=== PATIENT | male | born 1990 | race Caucasian/White ===

== ENCOUNTER 2017-03-26 23:36 | Emergency (ER) | payer MEDICAID ==
[~2017-03-26] VITALS: Ht 180.3 cm; Wt 94.8 kg
[~2017-03-26 23:36] MED LIST: IBUP-974 PO
[2017-03-27 00:10] VITALS: BP 132/70
--- NOTE | 2017-03-27 02:29 | NUR ---
PT SENT TO XRAY THEN WILL GO TO ER BED 11
--- NOTE | 2017-03-27 02:48 | NUR ---
PT BACK FROM X-RAY.
--- NOTE | 2017-03-27 02:48 | NUR ---
27 Y/O M W/C/O R FOOT PAIN X 6 DAYS/ FEVER AND ABCESS TO R FOOT X TODAY. NO MED HX. NO S/S OF DISTRESS NOTED AT THE MOMENT. ER MADE AWARE.
[2017-03-27 03:57] VITALS: BP 127/70
--- NOTE | 2017-03-27 03:57 | NUR ---
Patient discharged with v/s stable. Written and verbal after care instructions given and explained. Patient alert, oriented and verbalized understanding of instructions. Ambulatory with steady gait. All questions addressed prior to discharge. ID band removed. Patient advised to follow up with PMD in 2-3 days. Rx of norco given. Patient educated on indication of medication including possible reaction and side effects. Opportunity to ask questions provided and answered.
== END 2017-03-27 03:57 | disposition home or self-care (01) ==
LOC: MED 23:36
DX: L02.611 Cutaneous abscess of right foot (principal)
CPT/HCPCS: 73630; 99284

== ENCOUNTER 2017-03-29 15:33 | Emergency (ER) | payer MEDICAID ==
[~2017-03-29] VITALS: Ht 180.3 cm; Wt 92.7 kg
[2017-03-29 16:49] VITALS: BP 139/75
--- NOTE | 2017-03-29 16:53 | NUR ---
PT AA&OX4, RR EVEN/UNLABORED AT THIS TIME; PT TO LOBBY AWAITING OPEN BED.
--- NOTE | 2017-03-29 19:40 | NUR ---
LEAVE, TO SEE PMD IN AM, PATIENT LEFT WITHOUT BEING SEEN BY DR. MERRILL. NO FURTHER CARE PROVIDED FOR PATIENT.
== END 2017-03-29 19:40 | disposition left against medical advice (07) ==
LOC: MED 15:33
DX: M79.671 Pain in right foot (principal); Z53.21 Procedure and treatment not carried out due to patient leaving prior to being seen by health care provider

== ENCOUNTER 2017-03-30 02:45 | Inpatient (IN) | payer MEDICAID ==
[~2017-03-30] VITALS: Ht 180.3 cm; Wt 95.3 kg
[2017-03-30 02:52] VITALS: BP 110/67
--- NOTE | 2017-03-30 02:55 | NUR ---
TO LOBBY , V/S STABLE A/W FOR BED, COLTEN NOTED
--- NOTE | 2017-03-30 02:55 | NUR ---
Note daniaone in EDM - 03/30/17 at 0737 by BENITO 27/M W C/O RT FOOT PAIN. RT FOOT NOTED WITH BLOOD BLISTER BY 5TH METATARSAL, EDEMA AND ERYTHEMA. PT REPORTS INJURY FROM FOOTBALL X 1 WEEK AGO, SEEN IN ER, REPORTS NO FRACTURE, PT WAS GIVEN NORCO AND KEFLEX, REPORTS PT HE HAS 6 DAYS LEFT OF ANTIBIOTIC. PT ARRIVED IN CRUTCHES, +PSC. DENIES OTHER PMH/RX/OTC
[2017-03-30] MEDS ORDERED: NACL 0.9% 1,000 ML IV SCH (06:28)
[2017-03-30] MEDS ORDERED: CLINDAMYCIN 300 MG in DEXTROSE 5% 50 ML IV ONE (06:30)
[2017-03-30] MEDS ORDERED: PIPERACILLIN/TAZOBACTAM 3.375 GM in DEXT 5% MINI-BAG PLUS 50 ML IV ONE (06:30)
[2017-03-30] MEDS ORDERED: VANCOMYCIN 1,000 MG in DEXTROSE 5% 250 ML IV ONE (06:30)
--- NOTE | 2017-03-30 06:35 | NUR ---
27/M W C/O RT FOOT PAIN. RT FOOT NOTED WITH BLOOD BLISTER BY 5TH METATARSAL, EDEMA AND ERYTHEMA. PT REPORTS INJURY FROM FOOTBALL X 1 WEEK AGO, SEEN IN ER, REPORTS NO FRACTURE, PT WAS GIVEN NORCO AND KEFLEX, REPORTS PT HE HAS 6 DAYS LEFT OF ANTIBIOTIC. PT ARRIVED IN CRUTCHES, +PSC. DENIES OTHER PMH/RX/OTC
[2017-03-30] MEDS ORDERED: VANCOMYCIN 1,000 MG VIAL ONE (06:44)
[2017-03-30] MEDS ORDERED: CLINDAMYCIN 600 MG/4 ML VIAL ONE (06:44)
[2017-03-30] MEDS ORDERED: PIPERACILLIN/TAZOBACTAM 3.375 GM VIAL IV ONE (06:44)
--- NOTE | 2017-03-30 07:15 | NUR ---
Received report from Laura GUADALUPE. Patient resting with eyes closed laying supine in [facility]. RR are even and unlabored. VSS. NAD. Will continue to monitor.
[2017-03-30 07:32] LABS: CARBON DIOXIDE 30.9 mmol/L (21-32); CREATININE 0.9 mg/dL (0.7-1.3); POTASSIUM 3.9 mmol/L (3.5-5.1)
[2017-03-30 07:39] LABS: ALBUMIN 3.7 g/dL (3.4-5.0); BASOPHILS # (AUTO) 0.2 K/uL (0.00-0.22); EOSINOPHILS # (AUTO) 0.3 K/uL (0-0.4); EOSINOPHILS % (AUTO) 2.4 % (0.0-4.0); HEMATOCRIT 47.8 % (36-52); HEMOGLOBIN 16.3 g/dL (12.0-18.0); LYMPHOCYTES # (AUTO) 2.4 K/uL (2.0-11.5); LYMPHOCYTES % (AUTO) 22.2 % (20.5-51.1); MEAN CORPUSCULAR HEMOGLOBIN 31 pg (27-31); MEAN CORPUSCULAR HGB CONC 34 g/dL (33-37); MEAN CORPUSCULAR VOLUME 92 fL (80-94); MONOCYTES # (AUTO) 1.2 K/uL (0.8-1.0); MONOCYTES % (AUTO) 10.7 % (1.7-9.3); NEUTROPHILS # (AUTO) 6.9 K/uL (1.8-7.7); NEUTROPHILS % (AUTO) 62.7 % (42.2-75.2); PLATELET COUNT (AUTO) 325 K/uL (140-450); RED BLOOD CELL COUNT(AUTO) 5.21 MIL/uL (4.20-6.10); RED CELL DISTRIBUTION WIDTH 12.4 % (11.6-13.7); TOTAL BILIRUBIN 0.5 mg/dL (0.0-1.0)
[2017-03-30 08:00] LABS: PROTHROMBIN TIME 10.8 secs (10.8-13.4)
--- NOTE | 2017-03-30 09:15 | NUR ---
Pt resting in gurney with eyes closed. Pt with no complaints. VSS. NAD. Will continue to monitor.
--- NOTE | 2017-03-30 10:00 | NUR ---
call ct for results of ct; transporter radiology will follow up; awaiting results of ct; er md Carranza aware
--- NOTE | 2017-03-30 10:47 | NUR ---
called radiology for results for ct; [facility] dental lab technician sts "we are working on it"; er md silva aware; will follow up
[2017-03-30] MEDS ORDERED: ACETAMINOPHEN 325 MG TAB PO PRN (11:15)
[2017-03-30] MEDS ORDERED: ONDANSETRON 4 MG/2 ML VIAL IVP PRN (11:15)
[2017-03-30] MEDS: NACL 0.9% 1,000 ML IV SCH ×2 (11:33→20:13)
[2017-03-30 13:41] LABS: CHOL/HDL RATIO 2.8 (1-4.5); FREE T4 (FREE THYROXINE) 1.26 ng/dL (0.76-1.46); MAGNESIUM 2.1 mg/dL (1.8-2.4); PHOSPHORUS 4.1 mg/dL (2.5-4.9); THYROID STIMULATING HORMONE 4.49 uIU/mL (0.34-3.74)
--- NOTE | 2017-03-30 14:40 | NUR ---
RECEIVED PT FROM ER. REPORT GIVEN BY ER NURSE FRANTZ AT BEDSIDE. PT 27 MALE. PT IS ALERT, AWAKE AND ORIENTED X4 ON ROOM AIR. IV NOTED TO THE LEFT AC 18 G. INFUSING WELL. NO S/S OF DISTRESS. RIGHT FOOT IS SWELLING AND PURPLE. SKIN INTACT. CARE PLAN DISCUSSED WITH PT. PT VERBALIZED UNDERSTANDING. ORIENTED PT TO ROOM NO C/O OF PAIN AT THIS TIME. SAFETY PRECAUTIONS IN PLACE. UPDATED BOARD. VITAL SIGNS WITHIN NORMAL LIMITS. PT IN STABLE CONDITION, NO SIGNS OF DISTRESS NOTED. BED IN LOW POSITION, CALL LIGHT WITHIN REACH. WILL CONTINUE TO MONITOR.
[2017-03-30 14:48] VITALS: BP 119/60
[2017-03-30] MEDS: HYDROcodone/APAP 7.5/325 MG 1 TAB PO PRN (15:02)
--- NOTE | 2017-03-30 16:00 | NUR ---
CONSENT OBTAINED FOR I&D FOR TOMORROW.
[2017-03-30 16:10] VITALS: BP 100/56
--- NOTE | 2017-03-30 16:10 | NUR ---
MADE PT AWARE PT WILL BE NPO AFTER MIDNIGHT FOR I&D.
[2017-03-30] MEDS: LEVOFLOXACIN 750 MG/D5W PREMIX 150 ML IV SCH (16:52)
[2017-03-30] MEDS: CLINDAMYCIN 600 MG in DEXTROSE 5% 50 ML IV SCH (18:30)
[2017-03-30] MEDS: MORPHINE SULFATE 2 MG/ML SYR IVP PRN (18:34)
--- NOTE | 2017-03-30 19:25 | NUR ---
RECEIVED REPORT AT BEDSIDE FROM DAY SHIFT RN. PT A/OX4 ON ROOM AIR. PT HAS A 18G IV TO LEFT AC, INFUSING NS@125ML/HR. CELLULITIS TO RIGHT FOOT, OTHERWISE SKIN INTACT. SAFETY PRECAUTIONS IN PLACE. UPDATED BOARD. VITAL SIGNS WITHIN NORMAL LIMITS. PT IN STABLE CONDITION, NO SIGNS OF DISTRESS NOTED. BED IN LOW POSITION, CALL LIGHT WITHIN REACH. WILL CONTINUE TO MONITOR.
--- NOTE | 2017-03-30 20:02 | NUR ---
ENDORSED PT TO WASTE MACHINE OPERATOR. PT IN STABLE CONDITION.
[2017-03-30] MEDS: DOCUSATE SODIUM 100 MG GELCAP PO SCH (21:00)
[2017-03-31] VITALS: BP 100/47
--- NOTE | 2017-03-31 00:10 | NUR ---
VITAL SIGNS WITHIN NORMAL LIMITS. PT IN STABLE CONDITION, NO SIGNS OF DISTRESS NOTED. BED IN LOW POSITION, CALL LIGHT WITHIN REACH. WILL CONTINUE TO MONITOR.
[2017-03-31] MEDS: CLINDAMYCIN 600 MG in DEXTROSE 5% 50 ML IV SCH ×4 (00:42→18:12)
[2017-03-31] MEDS: NACL 0.9% 1,000 ML IV SCH ×3 (03:20→19:13)
--- NOTE | 2017-03-31 07:15 | NUR ---
ENDORSED PT TO DAY SHIFT RN FOR CONTINUITY OF CARE. PT IN STABLE CONDITION.
--- NOTE | 2017-03-31 07:17 | NUR ---
RECEIVED PATIENT REPORT AT BEDSIDE FROM NIGHT NURSE. PATIENT IS AAOX4 AND SHOWS NO S/S OF ACUTE DISTRESS ON ROOM AIR. IV NOTED ON THE LFT AC WITH IVF'S INFUSING WELL. RIGHT FOOT REDNESS, SWELLING AND PURPLE DISCOLORATION. PATIENT DENIES PAIN AT THIS TIME. POC WAS DISCUSSED WITH PATIENT AND HE VERBALIZED UNDERSTANDING. THE BED IS IN LOW POSITION WITH CALL LIGHT WITHIN REACH.
[2017-03-31 08:00] VITALS: BP 111/58
[2017-03-31 08:17] LABS: BASOPHILS # (AUTO) 0.2 K/uL (0.00-0.22); BASOPHILS % (AUTO) 3.3 % (0.0-2.0); EOSINOPHILS # (AUTO) 0.2 K/uL (0-0.4); EOSINOPHILS % (AUTO) 3.5 % (0.0-4.0); HEMATOCRIT 42.3 % (36-52); HEMOGLOBIN 14.2 g/dL (12.0-18.0); LYMPHOCYTES # (AUTO) 1.5 K/uL (2.0-11.5); LYMPHOCYTES % (AUTO) 27.6 % (20.5-51.1); MEAN CORPUSCULAR HEMOGLOBIN 31 pg (27-31); MEAN CORPUSCULAR HGB CONC 34 g/dL (33-37); MEAN CORPUSCULAR VOLUME 92 fL (80-94); MONOCYTES # (AUTO) 0.7 K/uL (0.8-1.0); MONOCYTES % (AUTO) 13.4 % (1.7-9.3); NEUTROPHILS # (AUTO) 2.9 K/uL (1.8-7.7); NEUTROPHILS % (AUTO) 52.2 % (42.2-75.2); PLATELET COUNT (AUTO) 293 K/uL (140-450); RED CELL DISTRIBUTION WIDTH 11.9 % (11.6-13.7); WHITE BLOOD COUNT (AUTO) 5.5 K/uL (4.8-10.8)
[2017-03-31 08:27] LABS: ANION GAP 9.3 (8-16); CARBON DIOXIDE 28.9 mmol/L (21-32); CREATININE 0.9 mg/dL (0.7-1.3); POTASSIUM 4.2 mmol/L (3.5-5.1)
[2017-03-31 08:34] LABS: MAGNESIUM 1.9 mg/dL (1.8-2.4); PHOSPHORUS 3.8 mg/dL (2.5-4.9)
[2017-03-31] MEDS: DOCUSATE SODIUM 100 MG GELCAP PO SCH ×2 (09:00→21:00)
--- NOTE | 2017-03-31 09:00 | NUR ---
PATIENT IS NPO FOR PROCEDURE, NO MEDICATION ADMINISTRATION AT THIS TIME.
--- NOTE | 2017-03-31 10:21 | NUR ---
PATIENT HAS BEEN SCREENED AND CATEGORIZED LOW NUTRITION RISK. PATIENT WILL BE SEEN WITHIN 7 DAYS OF ADMISSION. 04/05/[address]
--- NOTE | 2017-03-31 10:25 | NUR ---
PATIENT LEFT UNIT TO PROCEDURE IN STABLE CONDITION.
[2017-03-31] MEDS ORDERED: KETOROLAC 30 MG/ML VIAL IVP ONE (11:13)
[2017-03-31] MEDS ORDERED: ONDANSETRON 4 MG/2 ML VIAL IVP ONE (11:13)
[2017-03-31] MEDS ORDERED: SEVOFLURANE 250 ML BTL INH ONE (11:13)
[2017-03-31] MEDS ORDERED: DEXAMETHASONE 4 MG/ML VIAL IVP ONE (11:13)
[2017-03-31] MEDS ORDERED: BUPIVACAINE-MPF 0.25% 30 ML VIAL INJ ONE (11:16)
[2017-03-31] MEDS ORDERED: fentaNYL 0.05 MG/ML VIAL ONE (11:20)
[2017-03-31] MEDS ORDERED: HYDROmorphone PFS 2 MG/ML SYR IVP PRN (11:40)
[2017-03-31] MEDS ORDERED: ONDANSETRON 4 MG/2 ML VIAL IVP PRN (11:40)
[2017-03-31] MEDS ORDERED: HYDROmorphone PFS 2 MG/ML SYR ONE (12:00)
--- NOTE | 2017-03-31 12:35 | NUR ---
PATIENT ARRIVED BACK ON UNIT. PATIENT IN STABLE CONDITION V/S WNL AND CHARTED. PATIENT DENIES PAIN AT THIS TIME.
--- NOTE | 2017-03-31 13:00 | NUR ---
PATIENT STATED HE WOULD LIKE SOMETHING TO EAT, DR RICO NOTIFIED.
--- NOTE | 2017-03-31 13:40 | NUR ---
DR FAN NOTIFIED OF PATIENT STILL ON NPO IF OKAY TO ADVANCE DIET. TO PLACE IN ORDERS.
--- NOTE | 2017-03-31 15:00 | NUR ---
PATIENT IS TALKING ON THE PHONE AND SHOWS NO S/S OF ACUTE DISTRESS ON ROOM AIR.
[2017-03-31 16:00] VITALS: BP 109/52
[2017-03-31] MEDS: HYDROcodone/APAP 7.5/325 MG 1 TAB PO PRN (16:27)
[2017-03-31] MEDS: LEVOFLOXACIN 750 MG/D5W PREMIX 150 ML IV SCH (16:27)
--- NOTE | 2017-03-31 16:30 | NUR ---
ADMINISTERED SCHEDULED MEDICATIONS. IV ABX INFUSING WELL. PATIENT C/O 08/06 RT FOOT PAIN. ADMINISTERED NORCO PRN PAIN MED. WILL REASSESS IN ONE HR.
--- NOTE | 2017-03-31 18:15 | NUR ---
ADMINISTERED SCHEDULED MEDICATIONS. IV ABX INFUSING WELL. PT C/O 10/06 RT FOOT PAIN GAVE MORPHINE 1 MG IVP. WILL REASSESS IN 30 MIN.
[2017-03-31] MEDS: MORPHINE SULFATE 2 MG/ML SYR IVP PRN ×2 (18:16→23:31)
--- NOTE | 2017-03-31 19:20 | NUR ---
GAVE PATIENT REPORT AT BEDSIDE TO NIGHT NURSE. PATIENT ENDORSED IN STABLE CONDITION.
--- NOTE | 2017-03-31 19:21 | NUR ---
RECD. RESTING IN BED, AWAKE, A/OX4. RESPIRATION EVEN AND UNLABORED. IV OF NS AT 125 ML/HR INFUSING, RIGHT HAND G20, REQUESTED IV LINE AT LEFT AC G19 TO BE REMOVED, STATED IT HURTS. RIGHT FOOT COVERED WITH DRESSING WITH KERLIX DRY AND INTACT, TOES POSITIVE MOVEMENT AND SENSATION, CAPILLARY REFILL LESS 23 SECONDS. WHEN ASKED HOW MUCH PAIN IN THE SITE, STATED I'M OK, 04/08, WAS MEDICATED BY AM NURSE. PLAN OF CARE FOR THE NIGHT DISCUSSED. VERBALIZED UNDERSTANDING.
--- NOTE | 2017-03-31 20:00 | NUR ---
Patient's Plan of Care was discussed and reviewed with DIRECTOR OF REGIONAL SALES: LILLIE PITTS
[2017-04-01] VITALS: BP 111/50
--- NOTE | 2017-04-01 | NUR ---
SLEEPING COMFORTABLY IN BED, AFTER PAIN MEDICATION GIVEN BY RN.
[2017-04-01] MEDS: CLINDAMYCIN 600 MG in DEXTROSE 5% 50 ML IV SCH ×4 (00:12→18:00)
[2017-04-01] MEDS: NACL 0.9% 1,000 ML IV SCH ×3 (01:55→11:38)
--- NOTE | 2017-04-01 04:00 | NUR ---
NO COMPLAINT OF PAIN.
--- NOTE | 2017-04-01 06:30 | NUR ---
ALL ANTIBIOTICS DUE FOR THE SHIFT GIVEN BY RN, TOLERATED WELL.
--- NOTE | 2017-04-01 07:00 | NUR ---
CONDITION REMAIN STABLE. WILL ENDORSE AM NURSE FOR CONTINUITY OF CARE.
--- NOTE | 2017-04-01 07:10 | NUR ---
RECEIVED PATIENT REPORT AT BEDSIDE FROM NIGHT NURSE. PATIENT IS AAOX4 AND SHOWS NO S/S OF ACUTE DISTRESS ON ROOM AIR. DENIES PAIN AT THIS TIME. IV NOTED ON THE LFT HAND WITH IVF'S INFUSING WELL. RIGHT FOOT DRX CLEAN DRY AND INTACT. POC WAS DISCUSSED WITH PATIENT AND HE VERBALIZED UNDERSTANDING. SAFETY AND FALL RISK PRECAUTION ENFORCED. THE BED IS IN LOW POSITION WITH CALL LIGHT WITHIN REACH.
[2017-04-01 08:00] VITALS: BP 115/52
[2017-04-01 08:00] LABS: BASOPHILS # (AUTO) 0.2 K/uL (0.00-0.22); BASOPHILS % (AUTO) 2.2 % (0.0-2.0); EOSINOPHILS # (AUTO) 0.1 K/uL (0-0.4); EOSINOPHILS % (AUTO) 0.9 % (0.0-4.0); HEMATOCRIT 42.1 % (36-52); LYMPHOCYTES # (AUTO) 1.9 K/uL (2.0-11.5); LYMPHOCYTES % (AUTO) 17.7 % (20.5-51.1); MEAN CORPUSCULAR HEMOGLOBIN 31 pg (27-31); MEAN CORPUSCULAR HGB CONC 33 g/dL (33-37); MEAN CORPUSCULAR VOLUME 92 fL (80-94); MONOCYTES # (AUTO) 0.9 K/uL (0.8-1.0); MONOCYTES % (AUTO) 8.2 % (1.7-9.3); NEUTROPHILS # (AUTO) 7.8 K/uL (1.8-7.7); PLATELET COUNT (AUTO) 325 K/uL (140-450); RED BLOOD CELL COUNT(AUTO) 4.58 MIL/uL (4.20-6.10); RED CELL DISTRIBUTION WIDTH 11.8 % (11.6-13.7); WHITE BLOOD COUNT (AUTO) 10.9 K/uL (4.8-10.8)
[2017-04-01] MEDS: DOCUSATE SODIUM 100 MG GELCAP PO SCH (08:33)
[2017-04-01] MEDS: MORPHINE SULFATE 2 MG/ML SYR IVP PRN ×3 (08:34→15:59)
--- NOTE | 2017-04-01 08:38 | NUR ---
ADMINISTERED SCHEDULED MEDICATIONS. PATIENT SWALLOWED WITHOUT DIFFICULTY. PATIENT C/O 10/06 RT FOOT PAIN. ADMINISTERED MORPHINE 1 MG IVP. WILL REASSESS PAIN IN 30 MIN.
--- NOTE | 2017-04-01 09:30 | NUR ---
PATIENT IS SLEEPING AND SHOWS NO S/S OF ACUTE DISTRESS ON ROOM AIR. CRUTCHES AT BEDSIDE.
--- NOTE | 2017-04-01 10:15 | NUR ---
PATIENT BEING SEE BY PHYSICAL THERAPY.
--- NOTE | 2017-04-01 11:15 | NUR ---
PATIENT CHANGED ROOMS TO 118.
--- NOTE | 2017-04-01 11:55 | NUR ---
PATIENT C/O RT FOOT PAIN 10/06 AND WAS GIVEN MORPHINE 1 MG IVP. ALSO SCHEDULED MEDICATIONS WERE ADMINISTERED, IV ABX INFUSING WELL ON THE RT HAND. ALL NEEDS MET AT THIS TIME.
--- NOTE | 2017-04-01 13:15 | NUR ---
PATIENT BEING SEEN BY DR FAN REGARDING POSSIBLE DC. PATIENT SHOWS NO S/S OF ACUTE DISTRESS AT THIS TIME.
--- NOTE | 2017-04-01 15:37 | NUR ---
PATIENT IS RESTING AND EASILY AROUSABLE. PATIENT STATES PAIN ON THE RT FOOT /. WILL ADMINISTER PRN PAIN MEDICATION.
[2017-04-01 16:00] VITALS: BP 100/50
--- NOTE | 2017-04-01 16:00 | NUR ---
ADMINISTERED MORPHINE 1 MG IVP FOR 7/[address] FARMER PODIATRY AT BEDSIDE PROVIDING DRX CHANGE WITH; 1/2 IN PACKING, ADAPTIC, 4X4 GAUZE, KERLIX, AND STEF BANDAGE.
[2017-04-01] MEDS ORDERED: SULF-59 PO (16:18)
[2017-04-01] MEDS ORDERED: ACET-2858 PO (16:19)
[2017-04-01] MEDS: LEVOFLOXACIN 750 MG/D5W PREMIX 150 ML IV SCH (16:28)
--- NOTE | 2017-04-01 17:00 | NUR ---
PATIENT GIVEN WOUND DRX MATERIALS. PATIENT VERBALIZED UNDERSTANDING OF DRX CHANGE AT HOME. ALL NEED MET AT THIS TIME.
--- NOTE | 2017-04-01 18:00 | NUR ---
PATIENT REFUSED IV ABX SCHEDULED. PATIENT IS TO BE DISCHARGED SOON AND TRANSPORTATION CANNOT WAIT FOR IV TO INFUSE. PATIENT WILL BE DISCHARGED WITH PO ABX AND IS TO CONTINUE ONCE AT HOME.
--- NOTE | 2017-04-01 18:15 | NUR ---
PATIENT HAS BEEN DISCHARGED, ALL DISCHARGE INSTRUCTIONS AND PRESCRIPTIONS GIVEN. ALL PAPERWORK SIGNED. PATIENT VERBALIZED UNDERSTANDING OF CONTINUITY OF CARE. ALL BELONGINGS AND PRESCRIPTIONS IN PATIENT'S POSSESSION. IV DISCONTINUED WITH CANNULA INTACT. WRISTBANDS REMOVED. PATIENT LEFT UNIT IN WHEELCHAIR WITH BROTHER PRESENT AT SIDE. PATIENT LEFT IN STABLE CONDITION.
== END 2017-04-01 18:15 | disposition home or self-care (01) | DRG 383 ==
LOC: MED 02:45 → MTU 11:10
PROVIDERS: ADMIT Student in an Organized Health Care Education/Training Program; ATTEND Student in an Organized Health Care Education/Training Program
PROC: 0H9MXZZ Drainage of Right Foot Skin, External Approach (ICD-10-PCS; principal; 2017-03-31 10:15)
DX: L03.115 Cellulitis of right lower limb (principal); L02.611 Cutaneous abscess of right foot; B35.3 Tinea pedis; E02 Subclinical iodine-deficiency hypothyroidism; F12.90 Cannabis use, unspecified, uncomplicated; Z79.899 Other long term (current) drug therapy; Z79.1 Long term (current) use of non-steroidal anti-inflammatories (NSAID); Z72.89 Other problems related to lifestyle
CPT/HCPCS: 36415; 71045; 73700; 76536; 80048; 80053; 82550; 82553; 83036; 83605; 83735; 83874; 83880; 84100; 84439; 84443; 84484; 85025; 85610; 85651; 85730; 86140; 87040; 87081; 93925; J1100; J1170; J1885; J1956; J2270; J2405; J2543; J3010; J3370; J3490; J7030; J7060; J7120; Q0092